=== PATIENT | male | born 1995 | race Caucasian/White ===

== ENCOUNTER 2021-07-31 06:56 | Emergency (ER) | payer OTHER ==
[2021-07-31] MEDS ORDERED: IBU600 MG PO (09:20)
[2021-07-31] MEDS ORDERED: ZITHROMAX250 MG PO (09:20)
[2021-07-31] MEDS ORDERED: HURRICAINE57 G1 MM (09:20)
[2021-07-31] MEDS ORDERED: PEPCID AC10 MG PO (09:29)
== END 2021-07-31 09:49 | disposition home or self-care (01) ==
LOC: ER1 06:56
DX: J02.9 Acute pharyngitis, unspecified (principal); Z20.822 Contact with and (suspected) exposure to COVID-19
CPT/HCPCS: 0240U; 71045; 86403; 87081; 87880; 96372; 99283; J1100